=== PATIENT | male | born 1995 | race Caucasian/White ===

== ENCOUNTER 2020-01-08 22:18 | Emergency (ER) | payer OTHER ==
[~2020-01-08] VITALS: Ht 195.6 cm; Wt 147.4 kg
[2020-01-09 00:32] VITALS: BP 135/70
== END 2020-01-09 00:34 | disposition home or self-care (01) ==
LOC: M.ERS 22:18
DX: S61.012A Laceration without foreign body of left thumb without damage to nail, initial encounter (principal); F17.210 Nicotine dependence, cigarettes, uncomplicated; J45.909 Unspecified asthma, uncomplicated; F12.10 Cannabis abuse, uncomplicated; Z91.040 Latex allergy status; W26.0XXA Contact with knife, initial encounter; Y93.89 Activity, other specified; Y92.89 Other specified places as the place of occurrence of the external cause; Y99.8 Other external cause status

== ENCOUNTER 2021-02-23 17:01 | Emergency (ER) | payer OTHER ==
[~2021-02-23] VITALS: Ht 195.6 cm; Wt 136.1 kg
[2021-02-23 17:20] VITALS: BP 101/50
[2021-02-23] MEDS ORDERED: ADVIL200 M3 PO (17:25)
== END 2021-02-23 18:11 | disposition home or self-care (01) ==
LOC: M.ERS 17:01
DX: S31.811A Laceration without foreign body of right buttock, initial encounter (principal); J45.909 Unspecified asthma, uncomplicated; Z91.040 Latex allergy status; W26.0XXA Contact with knife, initial encounter; Y93.89 Activity, other specified; Y92.89 Other specified places as the place of occurrence of the external cause; Y99.8 Other external cause status